=== PATIENT | female | born 1965 | race Caucasian/White ===

== ENCOUNTER → 2017-04-03 | Outpatient (CLI) | payer BC | LOC: FIMAGING 15:47 | PROVIDERS: ATTEND Family Medicine | DX: Z12.31 Encounter for screening mammogram for malignant neoplasm of breast (principal) | CPT/HCPCS: G0202 ==

== ENCOUNTER 2017-08-28 13:30 | Emergency (ER) | payer BC, OTHER ==
--- NOTE | 2017-08-28 13:43 | EDPHY ---
H & P Stated Complaint: CP, SOB Time Seen by Provider: 08/28/17 13:39 - Personal History LMP (Females 10-55): 1-7 Days Ago Current Tetanus/Diphtheria Vaccine: Yes Current Tetanus Diphtheria and Acellular Pertussis (TDAP): Yes - Medical/Surgical History Hx Asthma: No Hx Chronic Respiratory Disease: No Hx Diabetes: No Hx Cardiac Disease: No Hx Renal Disease: No Hx Cirrhosis: No Hx Alcoholism: No Hx HIV/AIDS: No Hx Splenectomy or Spleen Trauma: No Other PMH: pericarditis, - Social History Smoking Status: Never smoked Constitutional: Initial Vital Signs Temperature (C) 36.5 C 08/28/17 13:34 Heart Rate 60 08/28/17 13:34 Respiratory Rate 16 08/28/17 13:34 Blood Pressure 138/86 H 08/28/17 13:34 O2 Sat (%) 98 08/28/17 13:34 O2 Delivery Mode Room Air Allergies/Adverse Reactions: No Known Allergies Allergy (Unverified 08/28/17 13:34) Home Medications: Medication Instructions Recorded NK [No Known Home Meds] 08/28/17 Medical Decision Making - Diagnostics Imaging Results: Imaging Impressions Chest X-Ray 08/28/17 13:51 Impression: Normal chest x-ray. Imaging: I viewed and interpreted images myself ED Course/Re-evaluation: CHIEF COMPLAINT: Chest pain, shortness of breath HISTORY OF PRESENT ILLNESS: The patient is a 52 y/o female with a history of pericarditis complaining of chest pain and shortness of breath, onset Th morning, 1 day ago. One year ago she developed pericarditis after keysha a virus. She believes she took colchicine during this past infection and followed up with Dr. Benitez, traffic rate analyst. Lying flat, taking a deep breath, or exerting herself exacerbates her symptoms and sitting up alleviates her symptoms. Denies fever, headache, abdominal pain, urinary complaints, numbness, paresthesias. REVIEW OF SYSTEMS: A 10 point review of systems was performed and is negative with the exception of the elements mentioned in the history of present illness. PHYSICAL EXAM: HR, BP, O2 Sat, RR. Temp noted General Appearance: Alert, well hydrated, appropriate, and non-toxic appearing. Head: Atraumatic without scalp tenderness or obvious injury Eyes: Pupils equal, round, reactive to light and accommodation, EOMI, no trauma , no injection. Ears: Clear bilaterally, no perforation, normal landmarks Nose: Atraumatic, no rhinorrhea, clear. Throat: There is no erythema or exudates, no lesions, normal tonsils, mucus membranes moist. Neck: Supple, nontender, no lymphadenopathy. Respiratory: No retractions, no distress, no wheezes, and no accessory muscle use. Lungs are clear to auscultation bilaterally. Cardiovascular: Intermittent friction rub when leaning forward. Regular rate and rhythm, no murmurs, or gallops. Bilateral carotid, radial, dorsalis pedis, and posterior tibial pulses intact. Good capillary refill all extremities. Gastrointestinal: Abdomen is soft, nontender, non-distended, no masses, no rebound, no guarding, no peritoneal signs. Musculoskeletal: Normal active ROM of all extremities, atraumatic. Neurological: Alert, appropriate, and interactive. Non-focal neuro. Skin: No rashes, good turgor, no nodules on palpation. Past medical history: Pericarditis Past surgical history: Denies Family history: Denies Social history: at bedside, lives in [facility] DIAGNOSTICS/PROCEDURES/CRITICAL CARE TIME: The 12 lead EKG was interpreted by myself as sinus rhythm with a rate of 56. See hard copy and/or "tracemaster" electronic copy for interpretation. Chest x-ray: Normal DIFFERENTIAL DIAGNOSIS: The differential diagnosis for the patient's chest pain included but was not limited to pericarditis, myocardial ischemia, pulmonary embolus, chest wall pain , pleural inflammation, and pulmonary infectious causes. MEDICAL DECISION MAKING: The patient is a 52 y/o female with a history of pericarditis presenting with chest pain, onset morning, 1 day ago. The symptoms today are similar to a prior pericarditis infection. On exam she has an intermittent friction rub when leaning forward. Labs, chest x-ray, and EKG ordered. 30mg IV Toradol, 1.2mg IV Colchicine, and 500mL IV NS administered. Patient has classic exam findings for pericarditis infection. 1341: The 12 lead EKG was interpreted by myself as sinus rhythm with a rate of 56. 1414: Consulted with Dr. Harris, traffic rate analyst at [facility], regarding this patient. He agrees with my treatment plan and will ensure that this patient has a follow up visit. 1435: Patient has a normal chest x-ray. 1448: Reassessed patient and discussed normal imaging and laboratory findings. She is feeling better after fluids and medications. I have discussed the Colchicine prescription and follow up visit with a traffic rate analyst. She is declining pain management prescriptions at this time. Return precautions provided; patient is comfortable with this plan. - Data Points Laboratory Results: Laboratory Results 08/28/17 13:45 08/28/17 13:45 08/28/17 08/28/17 13:45 13:45 WBC 4.94 10^3/uL 10^3/uL (3.80-9.50) RBC 4.36 10^6/uL 10^6/uL (4.18-5.33) Hgb 13.4 g/dL g/dL (12.6-16.3) Hct 40.3 % % (38.0-47.0) MCV 92.4 fL fL (81.5-99.8) MCH 30.7 pg pg (27.9-34.1) MCHC 33.3 g/dL g/dL (32.4-36.7) RDW 13.2 % % (11.5-15.2) Plt Count 208 10^3/uL 10^3/uL (150-400) MPV 9.7 fL fL (8.7-11.7) Neut % (Auto) 50.6 % % (39.3-74.2) Lymph % (Auto) 39.9 % % (15.0-45.0) Kendall % (Auto) 8.3 % % (4.5-13.0) Eos % (Auto) 0.6 % % (0.6-7.6) Baso % (Auto) 0.4 % % (0.3-1.7) Nucleat RBC Rel Count 0.0 % % (0.0-0.2) Absolute Neuts (auto) 2.50 10^3/uL 10^3/uL (1.70-6.50) Absolute Lymphs (auto) 1.97 10^3/uL 10^3/uL (1.00-3.00) Absolute Monos (auto) 0.41 10^3/uL 10^3/uL (0.30-0.80) Absolute Eos (auto) 0.03 10^3/uL 10^3/uL (0.03-0.40) Absolute Basos (auto) 0.02 10^3/uL 10^3/uL (0.02-0.10) Absolute Nucleated RBC 0.00 10^3/uL 10^3/uL (0-0.01) Immature Gran % 0.2 % % (0.0-1.1) Immature Gran # 0.01 10^3/uL 10^3/uL (0.00-0.10) Sodium 139 mEq/L mEq/L (135-145) Potassium 4.2 mEq/L mEq/L (3.5-5.2) Chloride 104 mEq/L mEq/L (97-110) Carbon Dioxide 24 mEq/l mEq/l (22-31) Anion Gap 11 mEq/L mEq/L (8-16) BUN 17 mg/dL mg/dL (7-23) Creatinine 1.0 mg/dL mg/dL (0.6-1.0) Estimated GFR 58 Glucose 83 mg/dL mg/dL (70-100) Calcium 9.2 mg/dL mg/dL (8.5-10.4) Troponin I < 0.012 ng/mL ng/mL (0.000-0.034) Medications Given: Discontinued Medications Colchicine (Colchicine) 1.2 mg PO EDNOW ONE Stop: 08/28/17 13:53 Last Admin: 08/28/17 13:59 Dose: 1.2 mg Sodium Chloride (Ns) 500 mls @ 1,000 mls/hr IV EDNOW ONE PRN Reason: Protocol Stop: 08/28/17 14:19 Last Admin: 08/28/17 13:58 Dose: 500 mls Ketorolac Tromethamine (Toradol) 30 mg IVP EDNOW ONE Stop: 08/28/17 13:52 Last Admin: 08/28/17 13:59 Dose: 30 mg Departure - Departure Disposition: Home, Routine, Self-Care Clinical Impression: Pericarditis Qualifiers: Pericarditis type: other type Chronicity: acute Qualified Code(s): I30.8 - Other forms of acute pericarditis Condition: Good Instructions: Acute Pericarditis (ED) Additional Instructions: 1. Please limit strenuous exertion, if you have pain stop doing that activity. 2. Take Colchicine as prescribed. 3. Follow-up with your primary doctor within 72 hours. 4. Return to the Emergency Department for fever, chest pain, shortness of breath , increasing pain or other worsening of condition. 5. Follow up with a traffic rate analyst for further testing, as soon as possible, within one week. 6. As we discussed, it is impossible to fully rule out heart disease as the cause of your chest pain in the emergency department. We would be happy to reevaluate you and observe you in the hospital at any time. Referrals: Veronica Miranda MD [Primary Care Provider] - As per Instructions [facility] [Provider Group] - As per Instructions Clinton Harris [Other] - As per Instructions Report Scribed for: Avi Salamanca Report Scribed by: Fay Rene Date of Report: 08/28/17 Time of Report: 13:43
--- NOTE | 2017-08-28 13:43 | CPEKG ---
Heart Rate: 56 RR Interval: 1071 P-R Interval: 164 QRSD Interval: 96 QT Interval: 444 QTC Interval: 429 P [place]: 11 QRS [place]: 2 T Wave [place]: 2 EKG Severity - NORMAL ECG - EKG Impression: SINUS RHYTHM Electronically Signed By: Hank Garcias 29-Aug-2017 19:12:25
[2017-08-28] MEDS ORDERED: NS 500 ML IV ONE (13:50)
[2017-08-28] MEDS ORDERED: KETOROLAC 30 MG/1 ML SDV IVP ONE (13:51)
[2017-08-28] MEDS ORDERED: COLCHICINE 0.6 MG CAP/TAB PO ONE (13:52)
[2017-08-28 13:58] LABS: PLATELET COUNT 208 10^3/uL (150-400)
[2017-08-28 14:57] VITALS: BP 105/66
== END 2017-08-28 15:02 | disposition home or self-care (01) ==
DX: I30.8 Other forms of acute pericarditis (principal); E86.9 Volume depletion, unspecified
CPT/HCPCS: 96374; J1885

== ENCOUNTER → 2017-08-31 | Outpatient (CLI) | payer OTHER ==
[~2017-08-31] MED LIST: IOPAMIDOL (ISOVUE 370) 100 ML BTL IV ONE
== END ==
LOC: FIMAGING 16:00
DX: J98.4 Other disorders of lung (principal); R91.8 Other nonspecific abnormal finding of lung field
CPT/HCPCS: Q9967

== ENCOUNTER → 2017-09-25 | Outpatient (CLI) | payer OTHER | LOC: FIMAGING 07:15 | PROVIDERS: ATTEND Family Medicine | DX: R10.11 Right upper quadrant pain (principal) ==

== ENCOUNTER → 2018-03-16 | Outpatient (CLI) | payer OTHER | LOC: FIMAGING 14:18 | PROVIDERS: ATTEND Family Medicine | DX: N63.20 Unspecified lump in the left breast, unspecified quadrant (principal) ==

== ENCOUNTER → 2018-08-23 | Outpatient (CLI) | payer OTHER | LOC: FIMAGING 08:32 | PROVIDERS: ATTEND Family Medicine | DX: Z12.31 Encounter for screening mammogram for malignant neoplasm of breast (principal); R92.8 Other abnormal and inconclusive findings on diagnostic imaging of breast ==

== ENCOUNTER → 2018-09-13 | Outpatient (CLI) | payer OTHER | LOC: FIMAGING 13:19 | PROVIDERS: ATTEND Family Medicine | DX: R92.8 Other abnormal and inconclusive findings on diagnostic imaging of breast (principal) ==